=== PATIENT | female | born 1945 | race Caucasian/White ===

== ENCOUNTER 2016-12-21 19:43 | Emergency (ER) | payer BC, MEDICARE ==
[2016-12-21 19:52] VITALS: BP 165/79
--- NOTE | 2016-12-21 20:15 | UC ---
Epistaxis Nasal HPI - HPI Summary HPI Summary: PT WAS PUTTING PANTS ON TONIGHT AROUND 6:30PM WHEN LEFT NARIS STARTED TO BLEED. CONTINUOUS BLEEDING FOR ABOUT AN HOUR UNTIL SHE INSERTED A TAMPON IN. TAMPON IS SOAKED AND NARIS CONTINUES TO BLEED UPON PRESENTATION HERE. NO TRAUMA TODAY ALTHOUGH SHE DID PICK A "PIMPLE" INSIDE THE LEFT NARIS ABOUT A WEEK AGO AND HAD A NOSEBLEED AT THAT TIME WHICH STOPPED EASILY. PT IS NOT ANTICOAGULATED. HAS TAKEN AN EXCEDRIN DAILY FOR THE PAST WEEK. - History of Current Complaint Chief Complaint: UCGeneralIllness Stated Complaint: NOSE BLEED,DIZZY Time Seen by Provider: 12/21/16 19:56 Hx Obtained From: Patient, Family/Collar Turner Operator - [id number] Onset/Duration: Sudden Onset, Lasting Hours, Still Present Timing: Constant Severity Initially: Moderate Severity Currently: Moderate Pain Intensity: 0 Pain Scale Used: 0-10 Numeric Character: Heavy Aggravating Factor(s): Nothing Alleviating Factor(s): Nothing Associated Signs And Symptoms: Negative: Bruising, Hematuria, Hematochezia, Sinus Pain, Nasal Discharge, Recent Abnormal Coagulation Studies, Foreign Body - Allergies/Home Medications Allergies/Adverse Reactions: Allergies Allergy/AdvReac Type Severity Reaction Status Date / Time No Known Allergies Allergy Verified 12/21/16 19:52 PMH/Surg Hx/FS Hx/Imm Hx Endocrine History Of: Denies: Diabetes Cardiovascular History Of: Reports: Hypertension Denies: Pacemaker/ICD Neurological History Of: Reports: Migraine - IN THE DISTANT PAST Cancer History Of: Denies: Breast Cancer - Surgical History Surgical History: Yes Surgery Procedure, Year, and Place: TONSILLECTOMY-AGE 18 2004 TWISTED URETERS- [facility] - Family History Known Family History: Negative: Blood Disorder - Social History Alcohol Use: Daily Alcohol Amount: 3-4 BEERS/NIGHT Substance Use Type: None Smoking Status (MU): Never Smoked Tobacco Review of Systems Constitutional: Negative Skin: Negative ENT: Other - NOSE BLEED Respiratory: Negative Cardiovascular: Negative Gastrointestinal: Negative All Other Systems Reviewed And Are Negative: Yes Physical Exam Triage Information Reviewed: Yes Appearance: Well-Appearing, No Pain Distress, Well-Nourished Vital Signs: Initial Vital Signs Temp 98.3 F 12/21/16 19:48 Pulse 78 12/21/16 19:48 Resp 16 12/21/16 19:48 BP 165/79 12/21/16 19:48 Pulse Ox 100 12/21/16 19:48 Vital Signs Reviewed: Yes Eyes: Positive: Conjunctiva Clear ENT: Positive: Hearing grossly normal, Other: - ACTIVE BLEEDING FROM LEFT NARIS. BLOOD IN OP Neck: Positive: Supple Respiratory: Positive: No respiratory distress, No accessory muscle use Cardiovascular: Positive: Pulses Normal Abdomen Description: Positive: Soft Musculoskeletal: Positive: No Edema Neurological: Positive: Alert Psychological: Positive: Normal Response To Family, Age Appropriate Behavior Skin: Negative: rashes Epistaxis Nasal Course/Dx - Course Course Of Treatment: INTRANASAL PHENYLEPHRINE APPLIED WITH SLOWING OF BLEED. WILL SEND TO ER FOR FURTHER EVALUATION AND MANAGEMENT. - Differential Dx/Diagnosis Provider Diagnoses: EPISTAXIS LEFT NARIS - Physician Notifications Discussed Patient Care With: DR. GARCIA Time Discussed With Above Provider: 21:24 Instructed by Provider To: [place] - [place] [facility] [place] [facility] [place] Discharge - Discharge Plan Condition: Good Disposition: TRANS HIGHER LVL OF CARE FAC Referrals: Taylor Du MD [Primary Care Provider] -
[2016-12-21] MEDS ORDERED: Phenylephrine 1% NASAL* 15 ML BOT ONE (20:19)
[2016-12-21] MEDS ORDERED: Lidocaine 2.5%/Prilocain 2.5%* 5 GM TUBE ONE (21:10)
== END 2016-12-21 21:30 | disposition short-term general hospital (02) ==
LOC: UCEAST 19:43
DX: R04.0 Epistaxis (principal); R42 Dizziness and giddiness; I10 Essential (primary) hypertension
CPT/HCPCS: 99212; A9270-GY; G0463

== ENCOUNTER 2016-12-21 21:44 | Emergency (ER) | payer BC ==
--- NOTE | 2016-12-21 22:38 | ED ---
Connor Concepcion Erika, scribed for Connor Pandey MD on 12/21/16 at 2214 . Throat Pain/Nasal Congestion - HPI Summary HPI Summary: Patient is a 71-year-old female presenting to the ED with a CC of sudden-onset, constant left nare epistaxis starting at 18:00 today. She notes that blood was dripping post-nasally as well when symptoms were occurring. Patient reports that symptoms resolved around 21:40, after pressure, tampon insertion, and intranasal phenylephrine from [facility]. Patient denies recent cold-like symptoms or nasal discharge, and states she has not been blowing her nose frequently recently. Pt does not take a blood thinner. - History of Current Complaint Chief Complaint: EDEpistaxis Time Seen by Provider: 12/21/16 22:06 Hx Obtained From: Patient Onset/Duration: Sudden Onset, Lasting Hours, Resolved Severity: Moderate - Allergies/Home Medications Allergies/Adverse Reactions: Allergies Allergy/AdvReac Type Severity Reaction Status Date / Time No Known Allergies Allergy Verified 12/21/16 21:51 PMH/Surg Hx/FS Hx/Imm Hx Endocrine/Hematology History: Denies: Hx Diabetes Cardiovascular History: Reports: Hx Hypertension Denies: Hx Pacemaker/ICD Musculoskeletal History: Reports: Hx Back Problems, Hx Scoliosis, Other Musculoskeletal History - SPINAL CURVATURE-OSTEOPENIA Denies: Hx Osteoporosis - Osteopenia Sensory History: Reports: Hx Contacts or Glasses - GLASSES FOR READING Denies: Hx Hearing Aid Opthamlomology History: Reports: Hx Contacts or Glasses - GLASSES FOR READING Neurological History: Reports: Hx Migraine - IN THE DISTANT PAST Psychiatric History: Reports: Hx Panic Disorder - Cancer History Hx Chemotherapy: No Hx Radiation Therapy: No - Surgical History Surgery Procedure, Year, and Place: TONSILLECTOMY-AGE 18 2004 TWISTED URETERS- [facility]IRED [facility] Hx Anesthesia Reactions: No Infectious Disease History: No Infectious Disease History: Denies: Traveled Outside the [place] in Last 30 Days - Family History Known Family History: Negative: Blood Disorder - Social History Alcohol Use: Daily Alcohol Amount: 3-4 BEERS/NIGHT Hx Substance Use: No Substance Use Type: Reports: None Hx Tobacco Use: No Smoking Status (MU): Never Smoked Tobacco Review of Systems Negative: Fever Positive: Epistaxis - resolved All Other Systems Reviewed And Are Negative: Yes Physical Exam Triage Information Reviewed: Yes Vital Signs On Initial Exam: Initial Vitals Temp Pulse Resp BP Pulse Ox 98.1 F 79 15 154/85 99 12/21/16 21:47 12/21/16 21:47 12/21/16 21:47 12/21/16 21:47 12/21/16 21:47 Vital Signs Reviewed: Yes Appearance: Positive: Well-Appearing, No Pain Distress Skin: Positive: Warm Head/Face: Positive: Normal Head/Face Inspection Eyes: Positive: ESTEBAN ENT: Positive: Other - dry blood lt nares Neck: Positive: Supple Respiratory/Lung Sounds: Positive: Breath Sounds Present Neurological: Positive: Alert, Oriented to Person Place, Time - Dilma Coma Scale Coma Scale Total: 15 Diagnostics - Vital Signs Vital Signs Temp Pulse Resp BP Pulse Ox 12/21/16 21:47 98.1 F 79 15 154/85 99 - Laboratory Lab Statement: Any lab studies that have been ordered have been reviewed, and results considered in the medical decision making process. Re-Evaluation - Re-Evaluation First Eval Re-Evaluation Time: 22:47 Change: Improved Comment: Pt still has no bleeding in the ED. Pt discharged home EENT Course/Dx - Course Assessment/Plan: A 71 y/o F presents to the ED after an episode of epistaxis, which resolved [facility]. Pt is observed in the ED with no further bleeding. Pt discharged home with follow up from ENT as needed. - Diagnoses Provider Diagnoses: nosebleed Discharge - Discharge Plan Condition: Stable Disposition: HOME Patient Education Materials: Nosebleed (ED) Referrals: Taylor Du MD [Primary Care Provider] - Byron Alexander MD [Medical Doctor] - If Needed The documentation as recorded by the Connor remy Erika accurately reflects the service I personally performed and the decisions made by me, Connor Pandey MD.
[2016-12-21 22:55] VITALS: BP 150/82
== END 2016-12-21 22:53 | disposition home or self-care (01) ==
LOC: ED 21:44
DX: R04.0 Epistaxis (principal)
CPT/HCPCS: 99281

== ENCOUNTER 2020-04-08 10:17 | Observation (INO) ==
[~2020-04-08 10:17] MED LIST: Lactated Ringers 1000 ml BAG 1,000 ML IV SCH
[2020-04-08] MEDS ORDERED: ceFAZolin 2 GM PREMIX in ORs 2 GM/50 ML BAG ONE (10:32)
[2020-04-08] MEDS ORDERED: Midazolam 2 mg/2 ml VIAL 1 mg/ml 2 ml VIAL (2 mg) ONE (11:35)
[2020-04-08] MEDS ORDERED: fentaNYL 100 mcg/2 ml 50 MCG/ML VIAL ONE ×3 (11:35→15:29)
[2020-04-08] MEDS ORDERED: Glycopyrrolate IV 0.2 MG/ML 1 ML VIAL ONE (11:36)
[2020-04-08] MEDS ORDERED: Succinylcholine 200 mg VIAL 20 mg/ml 10 ml VIAL (200 mg) ONE (11:36)
[2020-04-08] MEDS ORDERED: Propofol 10 MG/ML 20 ML BTL ONE (11:36)
[2020-04-08] MEDS ORDERED: Rocuronium 50 mg VIAL 10 mg/ml 5 ml VIAL (50 mg) ONE (11:40)
[2020-04-08] MEDS ORDERED: Phenylephrine 40 mcg/mL 10mL (400mcg) SYRINGE ONE (12:51)
[2020-04-08] MEDS ORDERED: EPHEDrine (Pressors) 50 MG/ML VIAL ONE (12:52)
[2020-04-08] MEDS ORDERED: Ondansetron 4 mg VIAL 2 MG/ML 2 ml VIAL IV PRN ×2 (13:55→14:49)
[2020-04-08] MEDS ORDERED: Naloxone 0.4 mg VIAL 0.4 mg/ml 1 ml VIAL IV PRN (13:55)
[2020-04-08] MEDS ORDERED: Ondansetron 4 mg VIAL 2 MG/ML 2 ml VIAL ONE (14:20)
[2020-04-08] MEDS ORDERED: Dexamethasone IV 4 MG/ML VIAL 1 ml VIAL ONE (14:20)
[2020-04-08] MEDS ORDERED: ROPIVACAINE 5 MG/ML 30 ML BTL (0.5%) ONE (14:24)
[2020-04-08] MEDS ORDERED: Lactulose 30 ml UDC PO PRN (14:49)
[2020-04-08] MEDS ORDERED: diPHENhydraMINE 25 mg TAB PO PRN (14:49)
[2020-04-08] MEDS ORDERED: diPHENhydraMINE IV 50 MG/ML 1 ml VIAL (BENADRYL) IV PRN (14:49)
[2020-04-08] MEDS ORDERED: Magnesium Hydroxide LIQ 30 ML UDC PO PRN (14:49)
[2020-04-08] MEDS ORDERED: Ondansetron ODT 4 mg TAB 4 MG TAB PO PRN (14:49)
[2020-04-08] MEDS ORDERED: ceFAZolin 1 GM in Dextrose (*) 1 GM/50 ML BAG IVPB SCH (15:00)
[2020-04-08] MEDS ORDERED: Acetaminophen IV 1 GM/100ML 1,000 MG/100 ML VIAL IVPB ONE (15:02)
[2020-04-08] MEDS ORDERED: oxyCODONE/Acetamin 5/325 mg TAB ONE (15:02)
[2020-04-08] MEDS: fentaNYL 100 mcg/2 ml 50 MCG/ML VIAL IV PRN ×5 (15:06→15:42)
[2020-04-08] MEDS ORDERED: Acetaminophen IV 1 GM/100ML 100 ML ONE (15:08)
[2020-04-08] MEDS ORDERED: HYDROmorphone 1 MG/1 ML SYRINGE ONE (15:47)
[2020-04-08] MEDS: Lactated Ringers 1000 ml BAG 1,000 ML IV SCH (17:30)
[2020-04-08] MEDS: oxyCODONE/Acetamin 5/325 mg TAB PO PRN ×2 (18:22→23:51)
[2020-04-08] MEDS: ceFAZolin 1 GM* X 3 DOSES POST-OP Q8H (AddVan) IVPB SCH (20:56)
[2020-04-08] MEDS: Magnesium Hydroxide LIQ 30 ML UDC PO SCH (20:56)
[2020-04-09] MEDS: ceFAZolin 1 GM* X 3 DOSES POST-OP Q8H (AddVan) IVPB SCH ×2 (05:20→13:02)
[2020-04-09] MEDS: oxyCODONE/Acetamin 5/325 mg TAB PO PRN ×2 (05:20→12:05)
[2020-04-09 05:48] LABS: Hematocrit 34 % (35-47); Hemoglobin 11.3 g/dL (12.0-16.0); Mean Platelet Volume 8.5 fL (7.4-10.4); Platelet Count 197 10^3/uL (150-450)
[2020-04-09 06:04] LABS: BUN/Creatinine Ratio 20.5 (8-20); Calcium 8.8 mg/dL (8.6-10.3); EGFR African American 94.6 (>60); EGFR Non-African American 78.1 (>60); Potassium 4.7 mmol/L (3.5-5.0)
[2020-04-09] MEDS: Lactated Ringers 1000 ml BAG 1,000 ML IV SCH (06:50)
[2020-04-09] MEDS ORDERED: NS 0.9% 500 ml BAG 500 ML IV ONE (08:40)
[2020-04-09] MEDS ORDERED: Vitamin THERAPEUTIC TAB PO SCH (09:00)
[2020-04-09] MEDS: Magnesium Hydroxide LIQ 30 ML UDC PO SCH (09:49)
[2020-04-09 11:44] VITALS: BP 116/56
== END 2020-04-09 15:40 | disposition home or self-care (01) ==
LOC: OR 10:17 → SSU 17:18 → INTOOBSV 17:18
PROVIDERS: ADMIT Orthopaedic Surgery Adult Reconstructive Orthopaedic Surgery; ATTEND Orthopaedic Surgery Adult Reconstructive Orthopaedic Surgery